=== PATIENT | female | born 1985 | race Caucasian/White ===

== ENCOUNTER 2024-10-04 09:59 | Emergency (ER) | payer BC ==
[~2024-10-04] VITALS: Ht 170.2 cm; Wt 77.0 kg
[2024-10-04 10:05] VITALS: O2SAT 98
[2024-10-04 10:37] VITALS: BP 110/75; PULSE 79; RESP 16; TEMP 36.8; O2SAT 98
[2024-10-04 13:37] LABS: INFLUENZA TYPE A Presumptive Negative (Pres. Neg.)
[2024-10-04 13:38] LABS: INFLUENZA TYPE B Presumptive Negative (Pres. Neg.)
== END 2024-10-04 10:40 | disposition home or self-care (01) ==
LOC: ER 09:59
DX: J06.9 Acute upper respiratory infection, unspecified (principal); B97.89 Other viral agents as the cause of diseases classified elsewhere; Z98.890 Other specified postprocedural states; Z91.041 Radiographic dye allergy status; E28.2 Polycystic ovarian syndrome; Z20.822 Contact with and (suspected) exposure to COVID-19; Z88.5 Allergy status to narcotic agent; Z88.8 Allergy status to other drugs, medicaments and biological substances
CPT/HCPCS: 87426; 87804; 99283

== ENCOUNTER 2025-03-15 16:30 | Emergency (ER) | payer BC ==
[~2025-03-15] VITALS: Ht 170.2 cm; Wt 82.0 kg
[2025-03-15 16:39] VITALS: O2SAT 100
[2025-03-15 21:16] VITALS: BP 139/88; PULSE 70; RESP 14; TEMP 36.7; O2SAT 98
== END 2025-03-15 21:24 | disposition home or self-care (01) ==
LOC: ER 16:30
DX: G89.29 Other chronic pain (principal); M54.2 Cervicalgia; F41.9 Anxiety disorder, unspecified; K21.9 Gastro-esophageal reflux disease without esophagitis; G43.909 Migraine, unspecified, not intractable, without status migrainosus; E28.2 Polycystic ovarian syndrome; Z98.890 Other specified postprocedural states; Z88.5 Allergy status to narcotic agent; Z88.8 Allergy status to other drugs, medicaments and biological substances
CPT/HCPCS: 81025; 99284

== ENCOUNTER 2025-03-26 19:15 | Emergency (ER) | payer BC ==
[2025-03-15 21:16] VITALS: TEMP 36.7
[~2025-03-26] VITALS: Ht 170.2 cm; Wt 85.5 kg
[2025-03-26 19:33] VITALS: O2SAT 99
[2025-03-26 20:10] LABS: BASOPHILS % 0.6 % (0.0-2.0); EOSINOPHILS % 1.9 % (0.0-5.0); HEMATOCRIT. 36.9 % (36.0-48.0); HEMOGLOBIN. 12.5 g/dL (12.0-16.0); LYMPHOCYTES % 34.4 % (20.0-50.0); MEAN PLATELET VOLUME 9.4 fl (7.4-10.4); MONOCYTES % 4.7 % (2.0-8.0); NEUTROPHILS % 58.4 % (40.0-76.0); PLATELET 227 x1000/uL (130-400); RED BLOOD CELL COUNT 4.18 mill/uL (4.2-5.4); RED CELL DISTRIBUTION WIDTH 12.4 % (11.6-14.6)
[2025-03-26 20:26] LABS: CREATININE 0.7 mg/dL (0.6-1.0)
[2025-03-26 20:27] LABS: UREA NITROGEN BLOOD 13 mg/dL (9-23)
[2025-03-26 20:28] LABS: ASPARTATE AMINOTRANSFERASE 21 IU/L (<34)
[2025-03-26 20:29] LABS: BILIRUBIN DIRECT < 0.1 mg/dL (<=3.0); BILIRUBIN TOTAL 0.4 mg/dL (0.1-1.0); PROTEIN TOTAL 7.4 g/dL (6.0-8.3)
[2025-03-26 20:33] LABS: CLARITY URINE CLEAR (CLEAR); COLOR URINE YELLOW (YELLOW); GLUCOSE URINE NEGATIVE (NEGATIVE); KETONES URINE NEGATIVE (NEGATIVE); LEUKOCYTE ESTERASE URINE NEGATIVE (NEGATIVE); NITRITE URINE NEGATIVE (NEGATIVE); OCCULT BLOOD URINE NEGATIVE (NEGATIVE); PH URINE 6.0 (4.5-8.0); PROTEIN URINE NEGATIVE (NEGATIVE); SPECIFIC GRAVITY URINE 1.010 (1.005-1.030); UROBILINOGEN URINE 0.2 E.U./dL (0.2-1.0)
[2025-03-26 20:33] LABS: HCG SCREEN NEGATIVE
[2025-03-26 22:37] VITALS: BP 137/84; PULSE 73; RESP 18; O2SAT 99
== END 2025-03-26 22:39 | disposition home or self-care (01) ==
LOC: ER 19:15
DX: M54.6 Pain in thoracic spine (principal); Z88.5 Allergy status to narcotic agent; Z88.8 Allergy status to other drugs, medicaments and biological substances
CPT/HCPCS: 36415; 71045; 76705; 80048; 80076; 81003; 84703; 85025; 93005; 99285